=== PATIENT | male | born 1950 | race Caucasian/White ===

== ENCOUNTER → 2017-09-24 | Outpatient (CLI) | payer BC ==
[~2017-09-24] MED LIST: None per pt
== END | disposition home or self-care (01) ==
LOC: STAR 11:09
PROVIDERS: ATTEND Thoracic Surgery (Cardiothoracic Vascular Surgery)
DX: Z01.818 Encounter for other preprocedural examination (principal)
CPT/HCPCS: 93005

== ENCOUNTER 2017-09-29 05:51 | Day surgery (SDC) | payer BC ==
[2017-09-24 11:46] VITALS: BP 130/80
[~2017-09-29] VITALS: Ht 177.8 cm; Wt 89.0 kg
[2017-09-29] MEDS ORDERED: LACTATED RINGERS 1,000 ML IV SCH ×2 (06:48→08:19)
[2017-09-29] MEDS ORDERED: BUPIVACAINE/PF 0.5% ONE (06:54)
[2017-09-29] MEDS ORDERED: EPINEPHRINE 1 MG/ML, 1ML ONE (06:54)
[2017-09-29] MEDS ORDERED: LIDOCAINE-MPF 1%, 2ML INFIL ONE (07:00)
[2017-09-29] MEDS ORDERED: FENTANYL PF 100 MCG/2ML ONE (07:18)
[2017-09-29] MEDS ORDERED: MIDAZOLAM 1 MG/ML, 2ML ONE (07:18)
[2017-09-29] MEDS ORDERED: LIDOCAINE GEL 2%, 5ML ONE (07:19)
[2017-09-29] MEDS ORDERED: LIDOCAINE-MPF 2% ,5ML ONE (07:21)
[2017-09-29] MEDS ORDERED: ROCURONIUM 10 MG/ML,10ML ONE (07:24)
[2017-09-29] MEDS ORDERED: ACETAMINOPHEN 500 MG TABLET PO ONE (07:30)
[2017-09-29] MEDS ORDERED: GABAPENTIN 300 MG CAPSULE PO ONE (07:30)
[2017-09-29] MEDS ORDERED: OxyconTIN ER 10 MG TAB.ER PO ONE (07:30)
[2017-09-29] MEDS ORDERED: ONDANSETRON ODT 8 MG PO ONE (07:30)
[2017-09-29] MEDS ORDERED: CEFAZOLIN 1,000 MG ONE (07:56)
[2017-09-29] MEDS ORDERED: ONDANSETRON 2MG/ML, 2ML ONE (07:56)
[2017-09-29] MEDS ORDERED: SUCCINYLCHOLINE 20 MG/ML, 10ML ONE (07:56)
[2017-09-29] MEDS ORDERED: NEOSTIGMINE 1 MG/ML, 10ML ONE (07:56)
[2017-09-29] MEDS ORDERED: DEXAMETHASONE 4 MG/ML, 1ML ONE (07:56)
[2017-09-29] MEDS ORDERED: PROPOFOL 10 MG/ML, 20ML ONE (07:56)
[2017-09-29] MEDS ORDERED: GLYCOPYRROLATE 0.2MG/1ML, 5ML ONE (07:56)
[2017-09-29] MEDS ORDERED: KETOROLAC 30 MG/1 ML ONE (07:59)
[2017-09-29] MEDS ORDERED: hydrALAzine 20 MG/ML, 1ML IV PRN (08:00)
[2017-09-29] MEDS ORDERED: MEPERIDINE/PF 25MG/0.5ML IVPush PRN (08:00)
[2017-09-29] MEDS ORDERED: ONDANSETRON ODT 8 MG PO PRN (08:00)
[2017-09-29] MEDS ORDERED: OXYcodone 5 MG/5 ML ORAL.SOL UDC PO PRN (08:00)
[2017-09-29] MEDS ORDERED: PROMETHAZINE 25 MG/ML, 1ML IV PRN (08:00)
[2017-09-29] MEDS ORDERED: LABETALOL 5MG/ML, 20ML IV PRN (08:00)
[2017-09-29] MEDS ORDERED: SCOPOLAMINE PATCH, 1.5MG PATCH.TD72 TD PRN (08:00)
[2017-09-29] MEDS ORDERED: MIDAZOLAM 1 MG/ML, 2ML IV PRN (08:00)
[2017-09-29] MEDS ORDERED: LORazepam 2 MG/ML, 1ML IVPush PRN (08:00)
[2017-09-29] MEDS ORDERED: EPHEDRINE 50 MG/ML, 1ML IM PRN (08:00)
[2017-09-29] MEDS ORDERED: ALBUTEROL/IPRATROPIUM 2.5MG/0.5MG, 3 ML NPPB PRN (08:00)
[2017-09-29] MEDS ORDERED: DIAZEPAM 5 MG/ML, 2ML IVPush PRN (08:00)
[2017-09-29] MEDS ORDERED: FENTANYL PF 100 MCG/2ML IV PRN (08:00)
[2017-09-29] MEDS ORDERED: PROMETHAZINE 25 MG SUPP PR PRN (08:00)
[2017-09-29] MEDS ORDERED: MORPHINE SULFATE 4 MG/ML, 1ML IVPush PRN (08:00)
[2017-09-29] MEDS ORDERED: HYDROcodone/APAP 5/325 TABLET PO PRN (08:30)
[2017-09-29] MEDS ORDERED: morphine SULFATE 10 MG/ML, 1ML IVPush PRN (08:30)
[2017-09-29] MEDS ORDERED: ONDANSETRON 2MG/ML, 2ML IVPush PRN (08:30)
== END 2017-09-29 11:35 ==
LOC: OUT 05:51
PROVIDERS: ATTEND Thoracic Surgery (Cardiothoracic Vascular Surgery)
DX: K80.10 Calculus of gallbladder with chronic cholecystitis without obstruction (principal); I42.9 Cardiomyopathy, unspecified; Z72.89 Other problems related to lifestyle
CPT/HCPCS: 88304; J0171; J0690; J1100; J1885; J2250; J2405; J2704; J2710; J3010; J3490; Q0162; J0330; J7120

== ENCOUNTER → 2020-04-16 | Outpatient (CLI) | payer BC | END | disposition home or self-care (01) | LOC: CFH 08:45 | PROVIDERS: ATTEND Internal Medicine Cardiovascular Disease | DX: I08.8 Other rheumatic multiple valve diseases (principal); I11.9 Hypertensive heart disease without heart failure; I42.2 Other hypertrophic cardiomyopathy; I71.9 Aortic aneurysm of unspecified site, without rupture | CPT/HCPCS: 93306 ==